=== PATIENT | female | born 1985 | race Caucasian/White ===

== ENCOUNTER 2019-05-18 08:23 | Emergency (ER) | payer OTHER ==
[2019-05-18 08:26] VITALS: RESP 18
[2019-05-18] MEDS ORDERED: SODIUM CHLORIDE 0.9% 1,000 ML IV ONE ×2 (08:37)
[2019-05-18 08:58] LABS: Basophils % (A) 0 %; Eosinophils # (A) 0.2 k/uL (0-0.7); Eosinophils % (A) 2 %; HCT 41.5 % (34.0-46.0); HGB 13.6 gm/dL (11.4-16.0); Lymphocytes # (A) 1.9 k/uL (1.0-4.8); Lymphocytes % (A) 18 %; MCH 29.3 pg (25.0-35.0); MCHC 32.7 g/dL (31.0-37.0); MCV 89.8 fL (80.0-100.0); Mean Platelet Volume 7.7; Monocytes # (A) 0.5 k/uL (0-1.0); Monocytes % (A) 4 %; Neutrophils % (A) 74 %; Platelet Count 289 k/uL (150-450); RBC 4.62 m/uL (3.80-5.40); RDW 13.6 % (11.5-15.5); WBC 10.8 k/uL (3.8-10.6)
[2019-05-18 09:07] LABS: ALT 11 U/L (4-34); AST 12 U/L (14-36); African American GFR (CKD) >90 (>60 ml/min/1.73 sqM); Albumin 3.9 g/dL (3.5-5.0); Alkaline Phosphatase 60 U/L (38-126); Anion Gap 8 mmol/L; Blood Urea Nitrogen 12 mg/dL (7-17); Calcium 9.3 mg/dL (8.4-10.2); Carbon Dioxide 21 mmol/L (22-30); Chloride 106 mmol/L (98-107); Glucose 86 mg/dL (74-99); Non-African American GFR(CKD) >90 (>60 ml/min/1.73 sqM); Potassium 4.1 mmol/L (3.5-5.1); Sodium 135 mmol/L (137-145); Total Bilirubin 0.8 mg/dL (0.2-1.3); Total Protein 7.1 g/dL (6.3-8.2)
[2019-05-18 09:08] LABS: Appearance,Urine Clear (Clear); Bacteria,Urine Rare /hpf; Bilirubin,Urine Negative (Negative); Blood,Urine Large (Negative); Color,Urine Yellow; Glucose,Urine (UA) Negative (Negative); Ketones,Urine Trace (Negative); Leukocyte Esterase,Urine Negative (Negative); Mucus,Urine Many /hpf; Nitrite,Urine Negative (Negative); Protein,Urine 1+ (Negative); RBC,Urine 84 /hpf (0-5); Specific Gravity,Urine 1.035 (1.001-1.035); Squamous Epithelial Cell,Urine 3 /hpf (0-4); WBC,Urine 5 /hpf (0-5)
--- NOTE | 2019-05-18 09:26 | US ---
EXAMINATION TYPE: Transabdominal DATE OF EXAM: 05/18/2019 9:14 AM COMPARISON: NONE CLINICAL HISTORY: pain. Cramping EXAM PERFORMED: Transabdominal (TA) EXAM MEASUREMENTS: GESTATIONAL AGE / DATING Physician Established: Not yet established Dates by LMP: Does not correlate Dates by First Scan: No previous this is first scan Dates by Current Scan for: (12 weeks/5 days) EDC: 11/25/2019 MATERNAL ANATOMY Uterus: 11.3 x 8.6 x 9.8 cm Right Ovary: 2.9 x 1.6 x 1.9 cm Left Ovary: 2.4 x 1.6 x 1.8 cm Post CDS / Adnexa: wnl Presence of free fluid: No Presence of corpus luteal cyst: No Presence of subchorionic bleed: No GESTATION / SURVEY CRL: 6.3 cm (15 weeks/5 days) Heart Rate: 163 bpm Rhythm: Normal IUP: Viable IUP Date of LMP: Does not correlate Beta HcG (if available): Not available at this time Viable IUP with an LIANA of 11/25/2019 IMPRESSION: VIABLE INTRAUTERINE GESTATION WITH A GESTATIONAL AGE OF 15 WEEKS 5 DAYS +/- 7 DAYS. THIS IS DISCORDAN T WITH THE PATIENT'S MENSTRUAL HISTORY. ESTIMATED DATE OF CONFINEMENT BASED ON TODAY'S EXAMINATION IS 11/25/2019
--- NOTE | 2019-05-18 09:34 | ED ---
Female Urogenital HPI - General Chief complaint: Vaginal Bleeding Stated complaint: 8 wks /vaginal bleeding Time Seen by Provider: 05/18/19 08:31 Source: patient, RN notes reviewed, old records reviewed Mode of arrival: ambulatory Limitations: no limitations - History of Present Illness Initial comments: Patient is a 33-year-old female G 65 female, with no RN REGISTRY at this time. She states that she is approximately 7 weeks based off of her last menstrual period. Patient states that she is noticing some spotting and vaginal bleeding for the past 2 days, she also once lower abdominal cramping. Patient has not had any testing for this as of this time.. Patient has had no chest pain or shortness of breath, denies any nausea or vomiting abdominal pain. - Related Data Home Medications Medication Instructions Recorded Confirmed Pnv,Calcium 72/Iron/Folic Acid 1 tab PO DAILY 03/21/16 03/21/16 [ Plus Tablet] Previous Rx's Medication Instructions Recorded Nvb-Bnmr-Isuaf Acid 1 cap PO DAILY #30 cap 05/18/19 [-U Capsule (formulary)] Cephalexin [Keflex] 500 mg PO Q6HR 3 Days #12 cap 05/19/19 Allergies Allergy/AdvReac Type Severity Reaction Status Date / Time No Known Allergies Allergy Verified 05/18/19 08:26 Review of Systems ROS Statement: Those systems with pertinent positive or pertinent negative responses have been documented in the HPI. ROS Other: All systems not noted in ROS Statement are negative. Past Medical History Past Medical History: No Reported History History of Any Multi-Drug Resistant Organisms: None Reported Past Surgical History: Appendectomy Past Psychological History: No Psychological Hx Reported Smoking Status: Current every day smoker Past Alcohol Use History: None Reported Past Drug Use History: None Reported General Exam - General Exam Comments Initial Comments: 33-year-old female. Alert and oriented. No significant distress. Limitations: no limitations General appearance: alert, in no apparent distress Head exam: Present: atraumatic, normocephalic, normal inspection Eye exam: Present: normal appearance, PERRL, EOMI. Absent: scleral icterus, conjunctival injection, periorbital swelling ENT exam: Present: normal exam, mucous membranes moist Neck exam: Present: normal inspection. Absent: tenderness, meningismus, lymphadenopathy Respiratory exam: Present: normal lung sounds bilaterally. Absent: respiratory distress, wheezes, rales, rhonchi, stridor Cardiovascular Exam: Present: regular rate, normal rhythm, normal heart sounds. Absent: systolic murmur, diastolic murmur, rubs, gallop, clicks GI/Abdominal exam: Present: soft, normal bowel sounds. Absent: distended, tenderness, guarding, rebound, rigid External exam: Present: normal external exam Speculum exam: Present: normal speculum exam, other (No bleeding noted on s peculum exam) By manual exam: Present: normal by manual exam Extremities exam: Present: normal inspection, full ROM, normal capillary refill. Absent: tenderness, pedal edema, joint swelling, calf tenderness Back exam: Present: normal inspection Neurological exam: Present: alert, oriented X3, CN II-XII intact Psychiatric exam: Present: normal affect Course Vital Signs 05/18/19 05/18/19 08:24 10:29 Temperature 98.1 F 97.9 F Pulse Rate 112 H 71 Respiratory 18 18 Rate Blood Pressure 124/59 112/63 O2 Sat by Pulse 100 98 Oximetry Medical Decision Making - Medical Decision Making 33-year-old female presents emergency department today for a Doppler concern for abdominal pain cramping. She thought she was 7 weeks based off of her last menstrual period. Patient reports that she had some vaginal spotting yesterday. On speculum exam there is no bleeding. Patient has no significant tenderness. She is Rh+. Patient's ultrasound actually showed a viable IUP measuring 15 weeks,. I discussed with Dr. Cid, he recommends the Patient follow-up with her previous RN REGISTRY's at this time. Patient be started on vitamins as well. Discussed return parameters and close follow-up. Did review patient's urine did show some a symptomatic bacteriuria. We'll's prescribed Patient prescription for Keflex. - Lab Data Result diagrams: 05/18/19 08:35 05/18/19 08:35 Lab Results 05/18/19 05/18/19 05/18/19 Range/Units 08:35 08:35 08:35 WBC 10.8 H (3.8-10.6) k/uL RBC 4.62 (3.80-5.40) m/uL Hgb 13.6 (11.4-16.0) gm/dL Hct 41.5 (34.0-46.0) % MCV 89.8 (80.0-100.0) fL MCH 29.3 (25.0-35.0) pg MCHC 32.7 (31.0-37.0) g/dL RDW 13.6 (11.5-15.5) % Plt Count 289 (150-450) k/uL Neutrophils % 74 % Lymphocytes % 18 % Monocytes % 4 % Eosinophils % 2 % Basophils % 0 % Neutrophils # 8.0 H (1.3-7.7) k/uL Lymphocytes # 1.9 (1.0-4.8) k/uL Monocytes # 0.5 (0-1.0) k/uL Eosinophils # 0.2 (0-0.7) k/uL Basophils # 0.0 (0-0.2) k/uL PT (9.0-12.0) sec INR (<1.2) APTT (22.0-30.0) sec Sodium 135 L (137-145) mmol/L Potassium 4.1 (3.5-5.1) mmol/L Chloride 106 (98-107) mmol/L Carbon Dioxide 21 L (22-30) mmol/L Anion Gap 8 mmol/L BUN 12 (7-17) mg/dL Creatinine 0.60 (0.52-1.04) mg/dL Est GFR (CKD-EPI)AfAm >90 (>60 ml/min/1.73 sqM) Est GFR (CKD-EPI)NonAf >90 (>60 ml/min/1.73 sqM) Glucose 86 (74-99) mg/dL Calcium 9.3 (8.4-10.2) mg/dL Total Bilirubin 0.8 (0.2-1.3) mg/dL AST 12 L (14-36) U/L ALT 11 (4-34) U/L Alkaline Phosphatase 60 (38-126) U/L Total Protein 7.1 (6.3-8.2) g/dL Albumin 3.9 (3.5-5.0) g/dL HCG, Quant 12570.5 mIU/mL Urine Color Urine Appearance (Clear) Urine pH (5.0-8.0) Ur Specific Liberty (1.001-1.035) Urine Protein (Negative) Urine Glucose (UA) (Negative) Urine Ketones (Negative) Urine Blood (Negative) Urine Nitrite (Negative) Urine Bilirubin (Negative) Urine Urobilinogen (<2.0) mg/dL Ur Leukocyte Esterase (Negative) Urine RBC (0-5) /hpf Urine WBC (0-5) /hpf Ur Squamous Epith Cells (0-4) /hpf Urine Bacteria (None) /hpf Urine Mucus (None) /hpf Urine HCG, Qual Detected (Not Detectd) Trichomonas Ag (Rapid) (Negative) Blood Type Blood Type Recheck Bld Type Recheck Status 05/18/19 05/18/19 05/18/19 Range/Units 08:35 08:35 08:35 WBC (3.8-10.6) k/uL RBC (3.80-5.40) m/uL Hgb (11.4-16.0) gm/dL Hct (34.0-46.0) % MCV (80.0-100.0) fL MCH (25.0-35.0) pg MCHC (31.0-37.0) g/dL RDW (11.5-15.5) % Plt Count (150-450) k/uL Neutrophils % % Lymphocytes % % Monocytes % % Eosinophils % % Basophils % % Neutrophils # (1.3-7.7) k/uL Lymphocytes # (1.0-4.8) k/uL Monocytes # (0-1.0) k/uL Eosinophils # (0-0.7) k/uL Basophils # (0-0.2) k/uL PT (9.0-12.0) sec INR (<1.2) APTT 22.5 (22.0-30.0) sec Sodium (137-145) mmol/L Potassium (3.5-5.1) mmol/L Chloride (98-107) mmol/L Carbon Dioxide (22-30) mmol/L Anion Gap mmol/L BUN (7-17) mg/dL Creatinine (0.52-1.04) mg/dL Est GFR (CKD-EPI)AfAm (>60 ml/min/1.73 sqM) Est GFR (CKD-EPI)NonAf (>60 ml/min/1.73 sqM) Glucose (74-99) mg/dL Calcium (8.4-10.2) mg/dL Total Bilirubin (0.2-1.3) mg/dL AST (14-36) U/L ALT (4-34) U/L Alkaline Phosphatase (38-126) U/L Total Protein (6.3-8.2) g/dL Albumin (3.5-5.0) g/dL HCG, Quant mIU/mL Urine Color Yellow Urine Appearance Clear (Clear) Urine pH 6.0 (5.0-8.0) Ur Specific Liberty 1.035 (1.001-1.035) Urine Protein 1+ H (Negative) Urine Glucose (UA) Negative (Negative) Urine Ketones Trace H (Negative) Urine Blood Large H (Negative) Urine Nitrite Negative (Negative) Urine Bilirubin Negative (Negative) Urine Urobilinogen 2.0 (<2.0) mg/dL Ur Leukocyte Esterase Negative (Negative) Urine RBC 84 H (0-5) /hpf Urine WBC 5 (0-5) /hpf Ur Squamous Epith Cells 3 (0-4) /hpf Urine Bacteria Rare H (None) /hpf Urine Mucus Many H (None) /hpf Urine HCG, Qual (Not Detectd) Trichomonas Ag (Rapid) (Negative) Blood Type O Positive Blood Type Recheck No Previous Record Bld Type Recheck Status ABR ONLY 05/18/19 05/18/19 Range/Units 08:35 10:20 WBC (3.8-10.6) k/uL RBC (3.80-5.40) m/uL Hgb (11.4-16.0) gm/dL Hct (34.0-46.0) % MCV (80.0-100.0) fL MCH (25.0-35.0) pg MCHC (31.0-37.0) g/dL RDW (11.5-15.5) % Plt Count (150-450) k/uL Neutrophils % % Lymphocytes % % Monocytes % % Eosinophils % % Basophils % % Neutrophils # (1.3-7.7) k/uL Lymphocytes # (1.0-4.8) k/uL Monocytes # (0-1.0) k/uL Eosinophils # (0-0.7) k/uL Basophils # (0-0.2) k/uL PT 9.6 (9.0-12.0) sec INR 0.9 (<1.2) APTT (22.0-30.0) sec Sodium (137-145) mmol/L Potassium (3.5-5.1) mmol/L Chloride (98-107) mmol/L Carbon Dioxide (22-30) mmol/L Anion Gap mmol/L BUN (7-17) mg/dL Creatinine (0.52-1.04) mg/dL Est GFR (CKD-EPI)AfAm (>60 ml/min/1.73 sqM) Est GFR (CKD-EPI)NonAf (>60 ml/min/1.73 sqM) Glucose (74-99) mg/dL Calcium (8.4-10.2) mg/dL Total Bilirubin (0.2-1.3) mg/dL AST (14-36) U/L ALT (4-34) U/L Alkaline Phosphatase (38-126) U/L Total Protein (6.3-8.2) g/dL Albumin (3.5-5.0) g/dL HCG, Quant mIU/mL Urine Color Urine Appearance (Clear) Urine pH (5.0-8.0) Ur Specific Liberty (1.001-1.035) Urine Protein (Negative) Urine Glucose (UA) (Negative) Urine Ketones (Negative) Urine Blood (Negative) Urine Nitrite (Negative) Urine Bilirubin (Negative) Urine Urobilinogen (<2.0) mg/dL Ur Leukocyte Esterase (Negative) Urine RBC (0-5) /hpf Urine WBC (0-5) /hpf Ur Squamous Epith Cells (0-4) /hpf Urine Bacteria (None) /hpf Urine Mucus (None) /hpf Urine HCG, Qual (Not Detectd) Trichomonas Ag (Rapid) Negative (Negative) Blood Type Blood Type Recheck Bld Type Recheck Status - Radiology Data Radiology results: report reviewed Ultrasound shows viable intrauterine gestation with gestational sacs 15 weeks and 5 days' escorted with patient's menstrual history. Estimated delivery would be on a 30 04/15/2019. Disposition Clinical Impression: 15 weeks gestation of Disposition: HOME SELF-CARE Condition: Good Instructions (If sedation given, give patient instructions): (ED) Additional Instructions: Patient has a follow-up with RN REGISTRY. Return to the ED if any alarming signs or symptoms occur. Prescriptions: Orj-Nyxf-Bybjj Acid [-U Capsule (formulary)] 1 cap PO DAILY #30 cap Is patient prescribed a controlled substance at d/c from ED?: No Referrals: None,Stated [Primary Care Provider] - 1-2 days Kyaw Cid MD [STAFF PHYSICIAN] - 1-2 days Time of Disposition: 11:02
[2019-05-18 09:50] LABS: HCG,Quantitative Serum 37415.5 mIU/mL
[2019-05-18 10:31] VITALS: BP 112/63; PULSE 71; TEMP 97.9
[2019-05-18 10:51] LABS: INR 0.9 (<1.2); Prothrombin Time 9.6 sec (9.0-12.0)
[2019-05-20 15:07] LABS: C. trachomatis,PCR Negative (Neg,Equiv); Chlamydia trachomatis Source Urine
[2019-05-20 15:08] LABS: N. gonorrhoeae,PCR Negative (Neg,Equiv); Neisseria Source Urine
== END 2019-05-18 11:12 | disposition home or self-care (01) ==
LOC: EC 08:23
DX: O99.332 Smoking (tobacco) complicating pregnancy, second trimester (principal); F17.200 Nicotine dependence, unspecified, uncomplicated; Z3A.15 15 weeks gestation of pregnancy
CPT/HCPCS: 36415; 76801; 80053; 81001; 81025; 84702; 85025; 85610; 85730; 86900; 86901; 87070; 87491; 87591; 87808; 96360; 96361; 99284

== ENCOUNTER 2023-01-26 06:03 | Inpatient (IN) | payer OTHER ==
--- NOTE | 2023-01-25 15:45 | P.HPOB ---
History of Present Illness H&P Date: 01/25/23 Chief Complaint: Induction of labor This is a 37 y.o. female, 7, para 6, with an estimated date of confinement of 01/27/2023, estimated gestational age of 39-6/7 weeks, who presents for induction of labor. She was seen by MFM during her due to advanced maternal age and has been doing surveillance. She did experience nose bleeds throughout her . labs: Hemoglobin-11.8 Blood type-O+ Antibody screen-neg Rubella-immune RPR-NR HIV-NR Toxoplasma-neg Hepatitis C-NR Random glucose-94 Hepatitis B surface antigen-neg 1 hr. GTT-86 GBS-neg, but history of + in past OB Hx: . History of 6 vaginal deliveries at term. It Project Coordinator Hx: History of chlamydia treated in the past Social Hx: Single. Unemployed. Review of Systems Constitutional: Denies chills, Denies fever Eyes: denies blurred vision, denies pain Ears, nose, mouth and throat: Denies headache, Denies sore throat Cardiovascular: Denies chest pain, Denies shortness of breath Respiratory: Denies cough Gastrointestinal: Reports abdominal pain (irregular contractions) Genitourinary: Reports pelvic pain, Reports Musculoskeletal: Reports low back pain Integumentary: Denies pruritus, Denies rash Neurological: Denies numbness, Denies weakness Psychiatric: Reports anxiety, Reports depression Past Medical History Past Medical History: No Reported History History of Any Multi-Drug Resistant Organisms: None Reported Past Surgical History: Appendectomy Past Anesthesia/Blood Transfusion Reactions: No Reported Reaction Past Psychological History: No Psychological Hx Reported Smoking Status: Vaper Past Alcohol Use History: None Reported Past Drug Use History: None Reported - Past Family History Mother Family Medical History: No Reported History Medications and Allergies Home Medications Medication Instructions Recorded Confirmed Type Anm-Zbuj-Zclui Acid 1 cap PO DAILY #30 cap 05/18/19 Rx [-U Capsule (formulary)] Allergies Allergy/AdvReac Type Severity Reaction Status Date / Time No Known Allergies Allergy Verified 05/18/19 08:26 Exam Osteopathic Statement: *. No significant issues noted on an osteopathic structural exam other than those noted in the History and Physical/Consult. HEENT: within normal limits Heart: regular rate and rhythm Lungs: clear to auscultation bilaterally Abdomen: , non-tender Pelvic: cervix 1.5 cm/60%/-2 heart tones: 140's by doppler Extremities: neg. Lisa's Assessment and Plan (1) 39 weeks gestation of Status: Acute Code(s): Z3A.39 - 39 WEEKS GESTATION OF SNOMED Code(s): 98787848 (2) Group B Streptococcus carrier, +RV culture, currently Status: Acute Code(s): O99.820 - STREPTOCOCCUS B CARRIER STATE COMPLICATING SNOMED Code(s): 9053016246140 Plan: Admission for oxytocin induction of labor. Antibiotic prophylaxis due to history of GBS. Expectant management.
[2023-01-26] MEDS ORDERED: TERBUTALINE 1 MG/ML VIAL SQ PRN (06:19)
[2023-01-26] MEDS ORDERED: TRANEXAMIC 1,000 MG/100ML-NACL 1,000 MG in EMPTY BAG 1 BAG IV PRN (06:19)
[2023-01-26] MEDS ORDERED: OXYTOCIN 10 UNIT/ML 1 ML VIAL IM PRN (06:19)
[2023-01-26] MEDS ORDERED: CARBOPROST TROMETHAMINE 250 MCG/ML 1 ML AMP IM PRN (06:19)
[2023-01-26] MEDS ORDERED: LIDOCAINE 0.5% (PF) 5 MG/ML (50 ML SDV) SQ PRN (06:19)
[2023-01-26] MEDS ORDERED: LIDOCAINE 1% (10MG/ML) FOR IV START INTRADERMA PRN (06:19)
[2023-01-26] MEDS ORDERED: AMPICILLIN 2,000 MG in SODIUM CHLORIDE 0.9% 100 ML IVPB STA (06:19)
[2023-01-26] MEDS ORDERED: miSOPROStoL 200 MCG TAB PO PRN (06:19)
[2023-01-26] MEDS ORDERED: OXYTOCIN 30 UNITS/500 ML NS 30 UNIT in SALINE 1 500ML.BAG IV SCH (06:19)
[2023-01-26] MEDS ORDERED: METHYLERGONOVINE 0.2 MG/ML 1 ML AMP IM PRN (06:19)
[2023-01-26] MEDS: LACTATED RINGERS 1,000 ML IV SCH ×2 (06:28→14:27)
[2023-01-26 06:33] VITALS: RESP 16
[2023-01-26 06:38] LABS: Basophils % (A) 0 %; Eosinophils # (A) 0.2 k/uL (0-0.7); Eosinophils % (A) 2 %; HGB 10.6 gm/dL (11.4-16.0); Hypochromasia Slight; Lymphocytes # (A) 1.9 k/uL (1.0-4.8); Lymphocytes % (A) 20 %; MCH 25.6 pg (25.0-35.0); MCHC 32.1 g/dL (31.0-37.0); MCV 79.8 fL (80.0-100.0); Mean Platelet Volume 8.7; Monocytes # (A) 0.6 k/uL (0-1.0); Monocytes % (A) 6 %; Neutrophils # (A) 6.7 k/uL (1.3-7.7); Neutrophils % (A) 71 %; Platelet Count 245 k/uL (150-450); RBC 4.14 m/uL (3.80-5.40); RDW 15.2 % (11.5-15.5); WBC 9.5 k/uL (3.8-10.6)
[2023-01-26] MEDS: AMPICILLIN 1,000 MG in SODIUM CHLORIDE 0.9% 50 ML IVPB SCH ×2 (10:38→14:26)
[2023-01-26] MEDS ORDERED: NALBUPHINE 10 MG/ML (10 ML MDV) IV PRN (11:57)
[2023-01-26] MEDS ORDERED: diphenhydrAMINE 50 MG CAP PO PRN (15:23)
[2023-01-26] MEDS ORDERED: ACETAMINOPHEN TAB 325 MG TAB PO PRN (15:23)
[2023-01-26] MEDS ORDERED: BENZOCAINE/MENTHOL SPRAY 1 GM/SPRAY AEROSOL TOPICAL PRN (15:23)
[2023-01-26] MEDS ORDERED: HYDROCORTISONE 2.5% RECTAL CREAM 30 GM TUBE RECTAL PRN (15:23)
[2023-01-26] MEDS ORDERED: SIMETHICONE 80 MG CHEWABLE PO PRN (15:23)
[2023-01-26] MEDS ORDERED: LANOLIN CREAM 5 GM TUBE TOPICAL PRN (15:23)
[2023-01-26] MEDS ORDERED: diphenhydrAMINE 25 MG CAP PO PRN (15:23)
[2023-01-26] MEDS ORDERED: ZOLPIDEM 5 MG TAB PO PRN (15:23)
[2023-01-26] MEDS ORDERED: IBUPROFEN 600 MG TAB PO PRN (15:23)
--- NOTE | 2023-01-26 18:01 | P.PROBDLV ---
Vaginal Delivery Note - . Vaginal Delivery Note: The patient progressed to complete dilation after oxytocin induction of labor and artificial rupture membranes with clear fluid noted. She was given ampicillin due to history of group B streptococcus in previous . She did receive 1 dose of Nubain while in labor. Once reaching complete, she began pushing and infant's head came to a crown. With one further push, the infant delivered across the perineum followed by the anterior shoulder and the remainder the body. Infant was placed on mother's abdomen and nose and mouth were bulb suctioned. Cord was allowed to finish pulsating and then was clamped and cut. A viable male was noted with scores of 9 at 1 minute and 10 at 5 minutes and weight of 7 lbs. 10 oz. Placenta delivered shortly thereafter, intact, with a three-vessel cord. Uterus contracted well after oxytocin was given and uterine massage was carried out. Inspection of the perineum revealed no perineal lacerations. Estimated blood loss is approximately 150 mL's. Both mother and infant are in stable condition.
[2023-01-26] MEDS ORDERED: SENNOSIDES-DOCUSATE SODIUM 1 EACH TAB PO SCH (20:00)
[2023-01-27 06:46] LABS: Basophils % (A) 0 %; Eosinophils # (A) 0.2 k/uL (0-0.7); Eosinophils % (A) 2 %; HCT 30.2 % (34.0-46.0); HGB 9.3 gm/dL (11.4-16.0); Hypochromasia Marked; Lymphocytes % (A) 17 %; MCHC 30.9 g/dL (31.0-37.0); MCV 81.1 fL (80.0-100.0); Mean Platelet Volume 8.8; Monocytes # (A) 0.7 k/uL (0-1.0); Monocytes % (A) 6 %; Neutrophils # (A) 8.5 k/uL (1.3-7.7); Neutrophils % (A) 73 %; Platelet Count 213 k/uL (150-450); RBC 3.72 m/uL (3.80-5.40); RDW 15.1 % (11.5-15.5); WBC 11.7 k/uL (3.8-10.6)
[2023-01-27 08:43] VITALS: BP 115/68; PULSE 80; TEMP 98
--- NOTE | 2023-01-27 08:55 | P.DS ---
Providers Date of admission: 01/26/23 06:03 Expected date of discharge: 01/27/23 Attending physician: Caro Urbano Primary care physician: Stated None - Discharge Diagnosis(es) (1) 39 weeks gestation of Current Visit: No Status: Acute (2) Group B Streptococcus carrier, +RV culture, currently Current Visit: No Status: Acute Hospital Course: This is a 37-year-old female 7 para 6 at 39-6/7 weeks who presented for induction of labor. She underwent oxytocin induction of labor and delivered vaginally a viable male infant with scores of 9 at 1 minute and 10 at 5 minutes and infant weight of 7 lbs. 10 oz. on 01/26/2023. Her course has been uncomplicated. She is bottle feeding. Lochia is decreasing. Her pain is well-controlled. Vital signs are stable. Abdomen is soft with fundus firm and nontender. Extremities show negative Homans. Impression is status post vaginal delivery day #1. Plan is to discharge home today. She will be given up her prescription for ibuprofen. She is advised to follow up in the office in 6 weeks for a check. She is advised to call the office if she has any further questions or concerns prior to her appointment time. Procedures: Oxytocin induction of labor Spontaneous vaginal delivery of a viable male infant on 01/26/2023 Patient Condition at Discharge: Stable Plan - Discharge Summary New Discharge Prescriptions: New Ibuprofen [Motrin] 600 mg PO Q6HR PRN #60 tab PRN Reason: Mild Pain (Scale 1 To 3) Continue Zys-Wbdn-Kjnip Acid [-U Capsule (formulary)] 1 cap PO DAILY #30 cap No Action Aspirin [Stephenson Aspirin EC] 81 mg PO Discharge Medication List Vga-Clck-Qqdsf Acid [-U Capsule (formulary)] 1 cap PO DAILY #30 cap 05/18/19 [Rx] Aspirin [Stephenson Aspirin EC] 81 mg PO 01/26/23 [History] Ibuprofen [Motrin] 600 mg PO Q6HR PRN #60 tab 01/27/23 [Rx] Follow up Appointment(s)/Referral(s): Caro Urbano DO [Doctor of Osteopathic Medicine] - 03/07/23 11:30 am Activity/Diet/Wound Care/Special Instructions: Instructions 1. Do not begin any exercise program for 3 weeks. 2. Do not resume sexual relations for 3 weeks or longer if uncomfortable. 3. You may take tub baths or showers at any time. 4. You may use tampons if desired after 3 weeks. 5. Keep the area of episiotomy (stitches) clean and dry. 6. If you are not nursing, wear a good fitting, supportive bra during the day and limit fluid intake for at least 1 week to prevent breast engorgement. 7. Call the office, [phone], within the next week to make appointment for your 6 week checkup if it has not already been made. 8. Report any of the following occurrences to the doctor promptly: a. Heavy, excessive bleeding b. Chills, fever c. Burning or frequency of urination d. Pain or redness and breasts if nursing e. Increasing pain or swelling in episiotomy (stitches). In addition to the above instructions, the following additional should be followed: 1. No heavy lifting or straining (exercising) until after 6 week checkup. 2. Keep abdominal incision clean and dry: You may wear a dressing if more comfortable. 3. Make office appointment for 10 days after going home or as instructed by her doctor. Discharge Disposition: HOME SELF-CARE
== END 2023-01-27 15:00 | disposition home or self-care (01) | DRG 560 ==
LOC: 4FBP 06:03
PROVIDERS: ADMIT Obstetrics & Gynecology; ATTEND Obstetrics & Gynecology
PROC: 10907ZC Drainage of Amniotic Fluid, Therapeutic from Products of Conception, Via Natural or Artificial Opening (ICD-10-PCS; principal; 2023-01-26)
PROC: 3E033VJ Introduction of Other Hormone into Peripheral Vein, Percutaneous Approach (ICD-10-PCS; principal; 2023-01-26)
PROC: 10E0XZZ Delivery of Products of Conception, External Approach (ICD-10-PCS; principal; 2023-01-26)
DX: O99.824 Streptococcus B carrier state complicating childbirth (principal); O99.334 Smoking (tobacco) complicating childbirth; F17.290 Nicotine dependence, other tobacco product, uncomplicated; O99.344 Other mental disorders complicating childbirth; F41.9 Anxiety disorder, unspecified; F32.A Depression, unspecified; Z56.0 Unemployment, unspecified; Z28.310 Unvaccinated for COVID-19; Z3A.39 39 weeks gestation of pregnancy; Z37.0 Single live birth
CPT/HCPCS: 85025; 86850; 86900; 86901